=== PATIENT | female | born 1965 | race Caucasian/White ===

== ENCOUNTER → 2016-08-29 | Outpatient (CLI) | payer MEDICAID | LOC: RAD 10:03 | PROVIDERS: ATTEND Nurse Practitioner | DX: M79.672 Pain in left foot (principal); M79.671 Pain in right foot; M72.2 Plantar fascial fibromatosis ==

== ENCOUNTER 2016-10-16 09:32 | Emergency (ER) | payer MEDICAID ==
[2016-10-16 09:42] VITALS: BP 130/69
--- NOTE | 2016-10-16 10:57 | ER Document Report ---
ED Neck/Back Problem - General Chief Complaint: Back Pain Stated Complaint: BACK PAIN Time seen by provider: 10:52 Mode of Arrival: Ambulatory Information source: Patient Notes: 51-year-old female presents to ED for complain of back pain and spasm for the last 3 days. She denies any injuries lifting anything pulling anything pushing anything. She walks with a steady gait but states that it hurts to move her arms move her body or take a deep breath. Today she is complaining of pain in her left upper upper back but she said that we are thing is yesterday it was her right upper back that hurt so bad. Patient denies any chills or fever. TRAVEL OUTSIDE OF THE [place] IN LAST 30 DAYS: No - HPI Patient complains to provider of: Upper back Onset: Other Onset: Gradual Timing: Waxing and waning, Worse Quality of pain: Pressure, Sharp Pain Level: 4 Context: Other - Does not remember any injury does not remember what started the pain just gradually progressed to now any movement or coughing hurts Recent injury: No Associated symptoms: Upper back pain Exacerbated by: Cough/deep breaths, Movement of trunk, Sitting position Relieved by: Nothing Similar symptoms previously: Yes Recently seen / treated by doctor: No - Related Data Allergies/Adverse Reactions: No Known Allergies Allergy (Verified 10/16/16 10:54) Past Medical History - General Information source: Patient - Social History Smoking Status: Current Every Day Smoker Chew tobacco use (# tins/day): No Frequency of alcohol use: None Drug Abuse: None Family History: Reviewed & Not Pertinent Patient has suicidal ideation: No Patient has homicidal ideation: No - Past Medical History Cardiac Medical History: Reports: None Pulmonary Medical History: Reports: None EENT Medical History: Reports: None Neurological Medical History: Reports: None Endocrine Medical History: Reports: None Renal/ Medical History: Reports: None Malignancy Medical History: Reports: None GI Medical History: Reports: None Musculoskeltal Medical History: Reports Hx Arthritis, Reports Hx Musculoskeletal Deformity, Reports Hx Musculoskeletal Trauma, Reports Other - Osteoporosis Skin Medical History: Reports None Psychiatric Medical History: Reports: Hx Anxiety, Hx Depression Traumatic Medical History: Reports: None Infectious Medical History: Reports: Hx HIV Past Surgical History: Reports: Hx Adenoidectomy, Hx Tonsillectomy, Hx Tubal Ligation - Immunizations Hx Diphtheria, Pertussis, Tetanus Vaccination: Yes - 2009 Review of Systems - Review of Systems Constitutional: No symptoms reported EENT: No symptoms reported Cardiovascular: No symptoms reported Respiratory: Hurts to breathe Gastrointestinal: No symptoms reported Genitourinary: No symptoms reported Female Genitourinary: No symptoms reported Musculoskeletal: Back pain - Left upper back, Muscle pain Skin: No symptoms reported Hematologic/Lymphatic: No symptoms reported Neurological/Psychological: No symptoms reported -: Yes All other systems reviewed and negative Physical Exam - Vital signs Vitals: Temp Pulse Resp BP Pulse Ox 97.6 F 68 18 130/69 H 100 10/16/16 09:40 10/16/16 09:40 10/16/16 09:40 10/16/16 09:40 10/16/16 09:40 Interpretation: Normal - General General appearance: Appears well, Alert - HEENT Head: Normocephalic, Atraumatic Eyes: Normal Pupils: PERRL - Respiratory Respiratory status: No respiratory distress Chest status: Nontender Breath sounds: Normal Chest palpation: Normal - Cardiovascular Rhythm: Regular Heart sounds: Normal auscultation Murmur: No - Abdominal Inspection: Normal Distension: No distension Bowel sounds: Normal Tenderness: Nontender Organomegaly: No organomegaly - Back Back: Normal, Tender - Left upper back just at the lower rib line tenderness. No: Deformity/step-off, CVA tenderness, Vertebra tenderness, Scars, Scoliosis, Wounds - Extremities General upper extremity: Normal inspection, Nontender, Normal color, Normal ROM , Normal temperature General lower extremity: Normal inspection, Nontender, Normal color, Normal ROM , Normal temperature, Normal weight bearing. No: Elias's sign - Neurological Neuro grossly intact: Yes Cognition: Normal Orientation: AAOx4 Selwyn Coma Scale Eye Opening: Spontaneous Michael Coma Scale Verbal: Oriented Michael Coma Scale Motor: Obeys Commands Selwyn Coma Scale Total: 15 Speech: Normal Motor strength normal: LUE, RUE, LLE, RLE Sensory: Normal - Psychological Associated symptoms: Normal affect, Normal mood - Skin Skin Temperature: Warm Skin Moisture: Dry Skin Color: Normal Course - Re-evaluation Re-evalutation: 10/16/16 11:33 Discussed x-ray with patient we'll discharge home and have follow-up with primary doctor written report of x-ray and CD of x-rays given to patient to follow-up. - Vital Signs Vital signs: Temp Pulse Resp BP Pulse Ox 97.6 F 68 18 130/69 H 100 10/16/16 09:40 10/16/16 09:40 10/16/16 09:40 10/16/16 09:40 10/16/16 09:40 - Diagnostic Test Radiology reviewed: Image reviewed, Reports reviewed Discharge - Discharge Clinical Impression: Upper back pain on left side, left lower lobe granuloma superior segment Condition: Stable Disposition: HOME, SELF-CARE Additional Instructions: You have complained of left upper back pain for the last 4 days. Please continue taking anti-inflammatories and I will give you muscle relaxers for the muscle spasms. Please follow-up with your primary doctor concerning your x-ray results so that she can follow these up. MUSCLE RELAXERS: Muscle relaxing medications are usually prescribed for acute muscle spasm or injury to the neck and back. They are often combined with antiinflammatory pain medication for increased relief. You may stop the muscle relaxer when the pain and stiffness have improved. Start the medication again if spasms recur. Muscle relaxers may cause drowsiness, especially with the first dose. Do not operate machinery or drive while under the effects of the medication. Most muscle relaxers last up to 24 hours. Do not combine the medication with alcohol. ICE PACKS: Apply ice packs frequently against the painful area. Many different schedules are recommended, such as "20 minutes on, 20 minutes off" or "one hour ice, two hours rest." If you need to work, you may need to go longer between ice treatments. You should plan to have the area ice packed AT LEAST one fourth of the time. The ice should be applied over the wrap, tape, or splint, or over a layer of cloth -- not directly against the skin. Some ice bags have a built-in cloth and can be put directly on the skin. WARM PACKS: After approximately two days, apply gentle heat (such as a heating pad or hot water bottle) for about 20 to 30 minutes about every two hours -- at least four times daily. Warmth and elevation will help you make a more rapid recovery , and will ease the pain considerably. Do not use HOT heat, and never apply heat for longer than 30 minutes. The continuous heat can invisibly damage skin and muscles -- even when no burn is seen on the surface. Damaged muscles can make you MORE sore. FOLLOW-UP CARE: If you have been referred to a physician for follow-up care, call the physician s office for an appointment as you were instructed or within the next two days. If you experience worsening or a significant change in your symptoms, notify the physician immediately or return to the Emergency Department at any time for re-evaluation. Prescriptions: Cyclobenzaprine HCl [Flexeril 5 mg Tablet] 5 mg PO TID #15 tablet Forms: Elevated Blood Pressure, Smoking Cessation Education Referrals: GHULAM IZAGUIRRE DO [Primary Care Provider] - Follow up tomorrow
== END 2016-10-16 12:02 | disposition home or self-care (01) ==
LOC: ER 09:32
DX: M54.89 Other dorsalgia (principal); J84.10 Pulmonary fibrosis, unspecified; F17.200 Nicotine dependence, unspecified, uncomplicated; Z98.51 Tubal ligation status; Z21 Asymptomatic human immunodeficiency virus [HIV] infection status
CPT/HCPCS: 71020; 99283

== ENCOUNTER → 2016-12-11 | Outpatient (CLI) | payer MEDICAID | LOC: WI 10:40 | PROVIDERS: ATTEND Nurse Practitioner | DX: Z12.31 Encounter for screening mammogram for malignant neoplasm of breast (principal) | CPT/HCPCS: 77067; G0202 ==

== ENCOUNTER 2017-04-05 17:50 | Emergency (ER) | payer MEDICAID ==
[2017-04-05] MEDS ORDERED: ACETAMINOPHEN 325 MG TABLET PO ONE (17:56)
[2017-04-05] MEDS ORDERED: AMOXICILLIN TR/POT CLAVULANATE 500-125 MG TAB PO ONE (17:56)
[2017-04-05] MEDS ORDERED: LIDOCAINE 1% INJ-PF (10 MG/ML) 30 ML SDV INJ ONE (17:56)
--- NOTE | 2017-04-05 17:56 | ER Document Report ---
ED Wound - General Chief Complaint: Laceration Stated Complaint: LACERATION TO RIGHT INDEX FINGER Time Seen by Provider: 04/05/17 17:56 Notes: Patient is a 52-year-old female who [place] the [place] and got her right index finger caught in his mouth when he is trying to catch a ball admits to laceration with minimal bleeding and pain. States that her tetanus is up-to-date. Patient is HIV positive TRAVEL OUTSIDE OF THE [place] IN LAST 30 DAYS: No - Related Data Allergies/Adverse Reactions: No Known Allergies Allergy (Verified 04/05/17 17:55) Past Medical History - Social History Smoking Status: Unknown if Ever Smoked Family History: Reviewed & Not Pertinent Renal/ Medical History: Denies: Hx Peritoneal Dialysis Musculoskeltal Medical History: Reports Hx Arthritis, Reports Hx Musculoskeletal Deformity, Reports Hx Musculoskeletal Trauma Psychiatric Medical History: Reports: Hx Anxiety, Hx Depression Infectious Medical History: Reports: Hx HIV Past Surgical History: Reports: Hx Adenoidectomy, Hx Tonsillectomy, Hx Tubal Ligation - Immunizations Hx Diphtheria, Pertussis, Tetanus Vaccination: Yes - 2010 Review of Systems - Review of Systems Constitutional: No symptoms reported Musculoskeletal: No symptoms reported Skin: See HPI -: Yes All other systems reviewed and negative Physical Exam - Vital signs Vitals: Temp Pulse Resp BP Pulse Ox 98.1 F 85 20 152/89 H 98 04/05/17 17:56 04/05/17 17:56 04/05/17 17:56 04/05/17 17:56 04/05/17 17:56 - General General appearance: Appears well, Alert In distress: None - Cardiovascular Pulses: Normal: Radial Normal capillary refill: Yes - Extremities Forearm: Normal, Nontender Wrist: Normal, Nontender Hand: Laceration, No evidence of FB, Other - Full range of motion no evidence of tendon injury. No: Deformity, Dislocation, Nail injury, Swelling, Tendon deficit - Skin Skin irregularity: Laceration - Approximately 5 cm in length along the right index finger on the radial side. Bleeding controlled Course - Re-evaluation Re-evalutation: 04/05/17 21:13 patient is a 52-year-old female hemodynamic stable, no acute distress afebrile. Wound was irrigated with Betadine saline to bedside. No evidence of retained foreign body. Patient with full range of motion no evidence of tendon injury. Wound was closed using 6-0 nylon for wound approximation. Patient initiated on Augmentin. Patient given strict return precautions and signs and symptoms to be aware of. Patient agrees with plan. After performing a Medical Screening Examination, I estimate there is LOW risk for OPEN FRACTURE, COMPARTMENT SYNDROME, TENDON RUPTURE, ACUTE NEUROVASCULAR INJURY, or RETAINED FOREIGN BODY, thus I consider the discharge disposition reasonable. Also, there is no evidence or peritonitis, sepsis, or toxicity. I have reevaluated this patient multiple times and no significant life threatening changes are noted. The patient and I have discussed the diagnosis and risks, and we agree with discharging home with close follow-up with the understanding that symptoms and presentations can change. We also discussed returning to the Emergency Department immediately if new or worsening symptoms occur. We have discussed the symptoms which are most concerning (e.g., changing or worsening pain, fever, numbness, weakness, cool or painful digits) that necessitate immediate return. - Vital Signs Vital signs: Temp Pulse Resp BP Pulse Ox 98.1 F 85 20 152/89 H 98 04/05/17 17:56 04/05/17 17:56 04/05/17 17:56 04/05/17 17:56 04/05/17 17:56 Procedures - Laceration/Wound Repair Right 3rd digit Wound length (cm): 5 Wound's Depth, Shape: Superficial, Linear Laceration pre-procedure: Sterile PPE donned, Betadine prep applied, Sterile drapes applied Anesthetic type: 1% Lidocaine Volume Anesthetic (mLs): 10 - Digital block Wound explored: Clean Wound Repaired With: Sutures Suture Size/Type: 6:0, Nylon Number of Sutures: 8 Layer Closure?: No Post-procedure wound care: Sterile dressing applied, Splint applied Post-procedure NV exam normal: Yes Complications: No Discharge - Discharge Clinical Impression: Laceration Dog bite Qualifiers: Encounter type: initial encounter Qualified Code(s): W54.0XXA - Bitten by dog, initial encounter Condition: Good Disposition: HOME, SELF-CARE Instructions: Antibiotic Ointment Protection ([facility]), Soap Cleansing ([facility]) Additional Instructions: LACERATION CARE: Your laceration has been sutured to keep the skin edges aligned during healing. The time of suture removal depends on the nature and location of your cut. Please follow the care instructions the doctor has outlined for you and return for further care, according to the schedule you've been given. Keep the wound and dressing clean. Unless you were told otherwise, you may shower daily, blotting the wound dry with a clean, unused towel. At other times, If the dressing gets wet or blood soaked, remove it and blot the wound dry, then reapply a new dressing. Unless you were instructed otherwise, dressings should be changed at least daily. If any signs of infection occur (swelling, redness, drainage, increasing tenderness, red streaks, tender lumps in the armpit or groin above the laceration, or fever), see the doctor immediately. SOAP CLEANSING: Gently wash the wound daily using a mild soap (like Ivory, Phisoderm, Neutrogena). Use warm water, rubbing gently until all debris, ooze, and crusting have been washed from the wound. Allow to dry briefly (about 10 minutes) after cleaning. Repeat this cleansing at least three times a day for the first two days and then once or twice a day. ANTIBIOTIC OINTMENT PROTECTION: Your wounds are such that dressing them is not practical or optional. After cleansing, you should apply a thin coating of antibiotic ointment ( Bacitracin, not Neosporin) to the wounds at least three times daily. This lessens infection risk, and may decrease the amount of scarring. Use a q-tip or dull butter knife, not your finger, to apply this ointment. Any debris or ooze which builds up in the ointment should be gently rubbed off with a sterile gauze pad. Harder crusting may need to be gently scrubbed off with a clean wash cloth with soap and warm water, perhaps applying a warm, wet wash cloth to the wound for ten minutes first. Development of redness, severe itching, or blistering may mean allergy to the ointment. See the doctor. PROPHYLACTIC ANTIBIOTIC: The antibiotics which have been prescribed are designed to decrease the risk of infection. Only certain types of wounds benefit from this -- the typical cut, scrape, or burn DOES NOT require antibiotics. Of course, infection can still occur despite the use of prophylactic antibiotics. Your wound will heal with less chance of an infectious complication if you take the medication as directed. The most important dose is the FIRST dose, so don't delay filling the prescription! FOLLOW-UP CARE: Your sutures should be removed in 8-10 days. To facilitate a timely removal of your sutures, you may return to the Emergency Department at [facility]. You do not need to call for an appointment, but the best time to come in for suture removal is early in the morning. If you have been referred to another physician for follow-up care, call that physicians office for an appointment as you were instructed. If you experience a significant change in your laceration, or if you are concerned there may be an infection (swelling, redness, drainage, increasing tenderness, red streaks, tender lumps in the armpit or groin above the laceration, or fever) , return to the Emergency Department immediately re-evaluation. Prescriptions: Amox Tr/Potassium Clavulanate [Augmentin 875-125 Tablet] 1 tab PO BID 10 Days tablet Referrals: GHULAM IZAGUIRRE DO [Primary Care Provider] - Follow up as needed
[2017-04-05 17:57] VITALS: BP 152/89
[2017-04-05] MEDS ORDERED: HYDROCODONE/ACETAMINOPHEN 5-325 MG 6 TAB/DSPK PO PRN (19:08)
== END 2017-04-05 19:15 | disposition home or self-care (01) ==
LOC: ER 17:50
PROC: 0HQFXZZ Repair Right Hand Skin, External Approach (ICD-10-PCS; principal; 2017-04-05)
DX: S61.210A Laceration without foreign body of right index finger without damage to nail, initial encounter (principal); Z21 Asymptomatic human immunodeficiency virus [HIV] infection status; W54.0XXA Bitten by dog, initial encounter
CPT/HCPCS: 99282; 12002; J3490 ×3

== ENCOUNTER 2017-04-14 12:11 | Emergency (ER) | payer MEDICAID ==
[2017-04-14 12:15] VITALS: BP 152/88
--- NOTE | 2017-04-14 12:27 | ER Document Report ---
HPI - HPI Patient complains to provider of: suture removal Onset: Last week Onset/Duration: Better Quality of pain: No pain Pain Level: Denies Context: Patient presents for suture removal to laceration to her right second finger. Patient states she has a sutures. Patient states that her dog accidentally bit her hand. Patient states she took the antibiotic for a few days but then stopped. Patient denies any problems or complications. Associated Symptoms: Other - Sutured laceration to right finger Exacerbated by: Denies Relieved by: Denies Similar symptoms previously: No Recently seen / treated by doctor: Yes - ROS ROS below otherwise negative: Yes Systems Reviewed and Negative: Yes All other systems reviewed and negative - CONSTITUTIONAL Constitutional: DENIES: Fever, Chills - REPRODUCTIVE Reproductive: DENIES: : - DERM Skin Color: Normal Skin Problems: Laceration Past Medical History - General Information source: Patient - Social History Smoking Status: Current Every Day Smoker Frequency of alcohol use: None Drug Abuse: None Occupation: None Family History: Reviewed & Not Pertinent Renal/ Medical History: Denies: Hx Peritoneal Dialysis Musculoskeltal Medical History: Reports Hx Arthritis, Reports Hx Musculoskeletal Deformity, Reports Hx Musculoskeletal Trauma Psychiatric Medical History: Reports: Hx Anxiety, Hx Depression Infectious Medical History: Reports: Hx HIV Past Surgical History: Reports: Hx Adenoidectomy, Hx Tonsillectomy, Hx Tubal Ligation - Immunizations Hx Diphtheria, Pertussis, Tetanus Vaccination: Yes - 2009 Vertical Provider Document - CONSTITUTIONAL Agree With Documented VS: Yes Exam Limitations: No Limitations General Appearance: WD/WN, No Apparent Distress - INFECTION CONTROL TRAVEL OUTSIDE OF THE [place] IN LAST 30 DAYS: No - HEENT HEENT: Atraumatic, Normocephalic - NECK Neck: Normal Inspection - RESPIRATORY Respiratory: No Respiratory Distress O2 Sat by Pulse Oximetry: 99 - CARDIOVASCULAR Pulses: Normal: Radial - BACK Back: Normal Inspection - MUSCULOSKELETAL/EXTREMETIES Musculoskeletal/Extremeties: SRIKANTH AN - NEURO Level of Consciousness: Awake, Alert, Appropriate Motor/Sensory: No Motor Deficit - DERM Integumentary: Warm, Dry, Laceration - Sutured 3 cm laceration to lateral aspect of right second finger, wound edges approximated, no concern for infection Course - Re-evaluation Re-evalutation: 04/14/17 The patient has been informed that they may have pre-hypertension or hypertension based on a blood pressure reading in the emergency department. I recommend that patient call the primary care provider listed on their discharge instructions or a physician of their choice by this week to arrange follow-up for further evaluation of possible pre-hypertension or hypertension. - Vital Signs Vital signs: Temp Pulse Resp BP Pulse Ox 98.4 F 87 14 152/88 H 99 04/14/17 12:14 04/14/17 12:14 04/14/17 12:14 04/14/17 12:14 04/14/17 12:14 Discharge - Discharge Clinical Impression: Visit for suture removal, Elevated blood pressure reading Condition: Stable Disposition: HOME, SELF-CARE Instructions: Care of Steri-Strip Closure ([facility]), Suture Removal Additional Instructions: Return immediately for any new or worsening symptoms Followup with your primary care provider as needed for a recheck Forms: Elevated Blood Pressure Referrals: GHULAM IZAGUIRRE DO [Primary Care Provider] - Follow up as needed
== END 2017-04-14 12:47 | disposition home or self-care (01) ==
LOC: ER 12:11
DX: S61.250D Open bite of right index finger without damage to nail, subsequent encounter (principal); W54.0XXD Bitten by dog, subsequent encounter; R03.0 Elevated blood-pressure reading, without diagnosis of hypertension; F17.200 Nicotine dependence, unspecified, uncomplicated; Z21 Asymptomatic human immunodeficiency virus [HIV] infection status